=== PATIENT | female | born 1980 | race Two or more races ===

== ENCOUNTER 2022-06-28 11:39 | Emergency (ER) | payer OTHER ==
[~2022-06-28] VITALS: Ht 167.6 cm; Wt 83.0 kg
[2022-06-28] MEDS ORDERED: OZEMPIC1 MG/0.71 SQ (12:05)
[2022-06-28] MEDS ORDERED: BENTYL10 MG/1 ML IM (12:06)
[2022-06-28] MEDS ORDERED: PEPCID AC10 MG PO (12:06)
[2022-06-28] MEDS ORDERED: STEGLATRO15 MG PO (12:06)
== END 2022-06-28 17:06 | disposition home or self-care (01) ==
LOC: ER 11:39
DX: N76.4 Abscess of vulva (principal)